=== PATIENT | male | born 1985 | race Caucasian/White ===

== ENCOUNTER 2024-03-28 13:05 | Emergency (ER) | payer OTHER, SELFPAY ==
[2024-03-28 13:18] VITALS: BP 149/98
--- NOTE | 2024-03-28 14:08 | ED.GENMED ---
History of Present Illness
General
Chief Complaint: Skin Surface Trauma
Source: patient
Time Seen by Provider: 03/28/24 13:34
History of Present Illness
History of Present Illness:
38-year-old male with no significant past medical history presenting to the emergency department for evaluation after he got his left thumb caught in a log splitter sustaining laceration and nail avulsion to the left thumb. Patient unknown last
tetanus. [id number]. No other injuries sustained.
Past History
Past History
ED Past Medical History: None
ED Past Surgical History: None
Social History
Tobacco: Non-smoker
Alcohol: None
Drug: None
Personal: Single
Employment: Employed
Review of Systems
Review of Systems
All Other Systems: ROS reviewed and negative except as documented in HPI and ROS
Phy Exam
Physical Exam
Physical Exam:
GENERAL: Alert , in no apparent distress
EYE: conjunctiva clear
Head: Normocephalic atraumatic
NECK: Supple,
ENT: mmm.
LUNGS: no acute respiratory distress
NEUROLOGICAL: Alert and oriented
SKIN: Warm and dry, laceration to the distal phalanx of the left thumb with nail avulsion and subungual hematoma. Patient is able to flex and extend at the IP joint and MCP joint. Sensation is grossly intact to light touch throughout all digits
MUSCULOSKELETAL: well perfused.
PSYCH: Normal and appropriate interaction.
Scores
Heart Failure Risk
Heart Failure Risk Score: Not Applicable
Heart Score for Chest Pain Patients
STEMI patient?: Not applicable
Withdrawal Assessment of Alcohol
Withdrawal Assessment Completed?: Not applicable
Course
Orders/Labs/Results
Orders:
Orders
03/28/24 13:20
Thumb/Finger(s) 2 View Lt [CR Finger(s)/thumb Min 2 Vw Lt] Urgent
Comment:
Reason For Exam: left thumb got caught in log splitter
Indicate Which Finger:: Thumb
03/28/24 14:10
Tetanus/Diphth/Acelpertussis [Adacel] 0.5 ml IM .ONCE ONE
Vital Signs
Initial and Last Documented VS:
Initial Vital Signs
Temp Pulse Resp BP Pulse Ox
97.9 F 80 16 149/98 98
03/28/24 13:18 03/28/24 13:18 03/28/24 13:18 03/28/24 13:18 03/28/24 13:18
Last Documented Vital Signs
Temp Pulse Resp BP Pulse Ox
97.9 F 80 16 149/98 98
03/28/24 13:18 03/28/24 13:18 03/28/24 13:18 03/28/24 13:18 03/28/24 13:18
Procedures
Laceration Closure
Left Distal Thumb:
Status of Wound: clean
Size of Wound in cm: 1
Description of Wound Edges: sharp
Preparation: cleaned with saline
Anesthesia: Digital-Regional
Revision/Debridement: routine- no revision
Type of Closure: single layer closure and Dermabond-skin glue
Skin Closure Material: 5-0 nylon
Number of sutures: 6
MDM/Problems Addressed
Differential Diagnosis Includes:
Laceration, subungual hematoma, fracture, no physical exam findings to suspect nerve or tendon laceration
MDM/Problems Addressed:
38-year-old male presenting to the emergency department for evaluation of left thumb laceration sustained in a log splitter. X-ray ordered from triage shows a tuft fracture of the distal phalanx. Laceration was repaired as above without any
difficulty. Proximal portion of the nail was tucked underneath the skin fold and tucked in place with Dermabond. Dressing placed over this. Will cover patient with Keflex due to the open fracture. NSAIDs/Tylenol as needed for pain. Patient will
follow-up outpatient. Aware of return precautions. Suture removal in 10 to 12 days.
*Radiology
Radiology exam reviewed: preliminary read by ED provider (Theronft fracture of the distal phalanx of the left thumb)
*Pulse Oximetry
Patient hypoxic: no
*Critical Care Note
Total Time (30-74mins, 75-104mins- exclusive of procedures): Not Applicable
ED Attending Note
-
Portions of this chart may have been created with voice recognition software.� Occasional wrong word or��sound alike� substitutions may have occurred due to the inherent limitations of voice recognition software.
Discharge Plan
Departure
Patient Disposition: Home (Routine Discharge)
Date of Disposition: 03/28/24
Time of Disposition: 14:08
Patient with high blood pressure during this ER visit?: Yes
Discharge Problem:
Open fracture of tuft of distal phalanx of left thumb, Laceration of left thumb
Instructions: Laceration Repair With Stitches (DC)
Prescriptions:
New
cephalexin 500 mg tablet
500 mg PO BID 7 Days Qty: 14 0RF
Referrals:
NONE,* [Family Provider] -
Activity Restrictions/Additional Instructions:
Suture removal in 10-12 days.
Interventions
Interventions:
*Risk Screen - Suicide Last Done: 03/28/24 13:18
*Neglect/Abuse Screening Last Done: 03/28/24 13:18
*Nursing Disposition Last Done: 03/28/24 14:35
ED-Skin Assessment Last Done: 03/28/24 14:22
Discharge Date and Time
Discharge Date/Time: 03/28/24 14:36
Print Language: [facility]
[2024-03-28] MEDS: ADACEL 0.5 ML IM (14:28)
== END 2024-03-28 14:36 | disposition home or self-care (01) ==
LOC: EMR 13:05
PROVIDERS: EMERGENCY PHYSICIAN Emergency Medicine
DX: S61.112A Laceration without foreign body of left thumb with damage to nail, initial encounter (principal); S62.522A Displaced fracture of distal phalanx of left thumb, initial encounter for closed fracture; W23.0XXA Caught, crushed, jammed, or pinched between moving objects, initial encounter; Z23 Encounter for immunization
CPT/HCPCS: 12001; 99283; 90471; 73140; 90715